=== PATIENT | female | born 1985 | race Caucasian/White ===

== ENCOUNTER → 2016-12-28 | Outpatient (CLI) | payer BC ==
[~2016-12-28] MED LIST: ACET-1311 PO; FERR1TAB23; OXYC-57 PO; PREN1TAB29
--- NOTE | 2016-12-28 14:50 | DIAGNOSTIC IMAGING REPORT ---
RIGHT FIFTH FINGER 3 VIEWS CLINICAL HISTORY: Right fifth finger pain status post trauma COMPARISON: None. DISCUSSION: There is a transverse hairline lucency through the base of distal phalanx. This may indicate a nondisplaced fracture. This is age-indeterminate. Please correlate with the patient's site of pain. IMPRESSION: 1. Subtle transverse hairline lucency through the base of the distal phalanx. This is age-indeterminate, and needs to be correlated with the patient's site of pain Electronically signed by: Kevin Slade M.D. 12/28/2016 2:48 PM Dictated Date/Time: 12/28/2016 2:47 PM
== END | disposition home or self-care (01) ==
LOC: C.RAD1850 14:22
PROVIDERS: ATTEND Family Medicine
DX: S69.91XA Unspecified injury of right wrist, hand and finger(s), initial encounter (principal); R93.7 Abnormal findings on diagnostic imaging of other parts of musculoskeletal system; X58.XXXA Exposure to other specified factors, initial encounter

== ENCOUNTER → 2017-03-13 | Outpatient (CLI) | payer BC ==
[2017-03-13 10:21] LABS: BASO % 0.4 %; BASO ABS # 0.02 K/uL (0-0.2); COMPLETE YES; EOS % 1.7 %; HEMATOCRIT 40.6 % (37-47); IG% 0.2 %; LYMPH % 30.3 %; LYMPH ABS # 1.45 K/uL (1.2-3.4); MEAN CELL VOLUME 91.9 fL (80-100); MEAN CORPUSCULAR HEMOGLOBIN 30.5 pg (25-34); MEAN CORPUSCULAR HGB CONC 33.3 g/dl (32-36); MEAN PLATELET VOLUME 10.4 fL (7.4-10.4); MONO % 7.7 %; NEUT % 59.7 %; PLATELET COUNT 193 K/uL (130-400); RED BLOOD COUNT 4.42 M/uL (4.2-5.4); WHITE BLOOD COUNT 4.78 K/uL (4.8-10.8)
[2017-03-13 11:04] LABS: ALT/SGPT 27 U/L (12-78); AST/SGOT 15 U/L (15-37); BLOOD UREA NITROGEN 16 mg/dl (7-18); BUN/CREATININE RATIO 23.7 (10-20); CALCIUM 8.6 mg/dl (8.5-10.1); CARBON DIOXIDE 30 mmol/L (21-32); CHLORIDE 106 mmol/L (98-107); CREATININE 0.66 mg/dl (0.60-1.20); GLUCOSE 67 mg/dl (70-99); POTASSIUM 4.3 mmol/L (3.5-5.1); SODIUM 140 mmol/L (136-145)
[2017-03-13 11:06] LABS: ALKALINE PHOSPHATASE 35 U/L (45-117)
[2017-03-16 02:20] LABS: AFP TUMOR MARKER SERUM 1.6 NG/ML (<6.1); HEP B QUANT 1773 IU/mL (<20); HEP B QUANT LOG IU/ML 3.25 Log IU/mL (<1.30); LIVER FIBR APOLIPOPROTEIN A-1 176 mg/dL (101-198); LIVER FIBROS ALPHA-2-MACROGLOB 299 mg/dL (106-279); LIVER FIBROSIS GGT 9 U/L (3-50); NECROINFLAMMATION ACT GRADE A0; NECROINFLAMMATION ACT SCORE 0.04
== END | disposition home or self-care (01) ==
LOC: C.LAB1850 09:31
PROVIDERS: ATTEND Internal Medicine Infectious Disease
DX: B18.1 Chronic viral hepatitis B without delta-agent (principal)

== ENCOUNTER → 2017-05-09 | Outpatient (CLI) | payer BC ==
[2017-05-09 14:36] LABS: URINE APPEARANCE CLEAR (CLEAR); URINE BILIRUBIN NEG (NEG); URINE COLOR YELLOW; URINE EPITHELIAL CELL AUTO >30 /lpf (0-5); URINE NITRITE NEG (NEG); URINE SPECIFIC GRAVITY 1.024 (1.000-1.030); UROBILINOGEN NEG (NEG)
[2017-05-09 14:42] LABS: MANUAL MICROSCOPIC REQUIRED? NO; REVIEW REQ? NO
== END | disposition home or self-care (01) ==
LOC: C.LABSPEC 13:10
PROVIDERS: ATTEND Obstetrics & Gynecology
DX: Z34.81 Encounter for supervision of other normal pregnancy, first trimester (principal)

== ENCOUNTER → 2017-05-16 | Outpatient (CLI) | payer BC ==
[2017-05-16 12:23] LABS: BASO % 0.3 %; BASO ABS # 0.02 K/uL (0-0.2); COMPLETE YES; HEMATOCRIT 35.2 % (37-47); IG% 0.3 %; LYMPH % 19.7 %; LYMPH ABS # 1.24 K/uL (1.2-3.4); MEAN CELL VOLUME 89.3 fL (80-100); MEAN CORPUSCULAR HGB CONC 34.7 g/dl (32-36); MEAN PLATELET VOLUME 10.4 fL (7.4-10.4); MONO % 6.1 %; NEUT % 72.6 %; PLATELET COUNT 191 K/uL (130-400); RED BLOOD COUNT 3.94 M/uL (4.2-5.4); WHITE BLOOD COUNT 6.28 K/uL (4.8-10.8)
[2017-05-18 04:28] LABS: HBSAG REACTIVE (NON-REACTIVE)
[2017-05-19 13:07] LABS: CHLAMYDIA TRACH RNA*** NOT DETECTED (NOT DETECTED); GC (NEIS GONORRHOEAE)RNA** NOT DETECTED (NOT DETECTED)
== END | disposition home or self-care (01) ==
LOC: C.LAB1850 09:55
PROVIDERS: ATTEND Obstetrics & Gynecology
DX: Z34.81 Encounter for supervision of other normal pregnancy, first trimester (principal)

== ENCOUNTER → 2017-05-16 | Outpatient (CLI) | payer BC | END | disposition home or self-care (01) | LOC: C.PAPS 11:43 | PROVIDERS: ATTEND Obstetrics & Gynecology | DX: Z01.419 Encounter for gynecological examination (general) (routine) without abnormal findings (principal); Z11.51 Encounter for screening for human papillomavirus (HPV) ==

== ENCOUNTER → 2017-06-21 | Outpatient (CLI) | payer BC ==
[2017-06-21 13:53] LABS: GTGD 50 Grams
== END | disposition home or self-care (01) ==
LOC: C.LAB1850 09:30
PROVIDERS: ATTEND Obstetrics & Gynecology
DX: Z34.82 Encounter for supervision of other normal pregnancy, second trimester (principal)

== ENCOUNTER → 2017-06-28 | Outpatient (CLI) | payer BC ==
[2017-06-28 13:17] LABS: BASO % 0.1 %; BASO ABS # 0.01 K/uL (0-0.2); COMPLETE YES; EOS % 0.7 %; IG% 0.4 %; LYMPH % 17.4 %; LYMPH ABS # 1.46 K/uL (1.2-3.4); MEAN CELL VOLUME 91.7 fL (80-100); MEAN CORPUSCULAR HEMOGLOBIN 31.7 pg (25-34); MEAN CORPUSCULAR HGB CONC 34.5 g/dl (32-36); MEAN PLATELET VOLUME 9.8 fL (7.4-10.4); MONO % 5.9 %; NEUT % 75.5 %; PLATELET COUNT 207 K/uL (130-400); WHITE BLOOD COUNT 8.41 K/uL (4.8-10.8)
[2017-06-28 13:54] LABS: ALT/SGPT 21 U/L (12-78); AST/SGOT 14 U/L (15-37); BLOOD UREA NITROGEN 8 mg/dl (7-18); BUN/CREATININE RATIO 15.1 (10-20); CALCIUM 8.7 mg/dl (8.5-10.1); CARBON DIOXIDE 28 mmol/L (21-32); CHLORIDE 104 mmol/L (98-107); GLUCOSE 74 mg/dl (70-99); SODIUM 136 mmol/L (136-145)
[2017-06-28 13:57] LABS: ALB/GLOB RATIO 0.8 (0.9-2); ALKALINE PHOSPHATASE 32 U/L (45-117)
[2017-07-04 03:12] LABS: HEP B QUANT 12155 IU/mL (<20); HEP B QUANT LOG IU/ML 4.08 Log IU/mL (<1.30); LIVER FIBR APOLIPOPROTEIN A-1 229 mg/dL (101-198); LIVER FIBROS ALPHA-2-MACROGLOB 374 mg/dL (106-279); LIVER FIBROSIS GGT 5 U/L (3-50); NECROINFLAMMATION ACT GRADE A0; NECROINFLAMMATION ACT SCORE 0.02
== END | disposition home or self-care (01) ==
LOC: C.LAB1850 12:08
PROVIDERS: ATTEND Internal Medicine Infectious Disease
DX: B18.1 Chronic viral hepatitis B without delta-agent (principal)

== ENCOUNTER → 2017-10-11 | Outpatient (CLI) | payer BC ==
[2017-10-11 12:05] LABS: BASO % 0.2 %; BASO ABS # 0.02 K/uL (0-0.2); COMPLETE YES; EOS % 1.2 %; HEMATOCRIT 32.7 % (37-47); IG% 0.7 %; LYMPH % 16.6 %; LYMPH ABS # 1.62 K/uL (1.2-3.4); MEAN CORPUSCULAR HEMOGLOBIN 30.7 pg (25-34); MEAN CORPUSCULAR HGB CONC 32.7 g/dl (32-36); MEAN PLATELET VOLUME 10.1 fL (7.4-10.4); MONO % 4.9 %; NEUT % 76.4 %; PLATELET COUNT 203 K/uL (130-400); RED BLOOD COUNT 3.48 M/uL (4.2-5.4); WHITE BLOOD COUNT 9.74 K/uL (4.8-10.8)
[2017-10-11 12:21] LABS: ALT/SGPT 20 U/L (12-78); BLOOD UREA NITROGEN 10 mg/dl (7-18); BUN/CREATININE RATIO 17.4 (10-20); CALCIUM 8.3 mg/dl (8.5-10.1); CARBON DIOXIDE 24 mmol/L (21-32); CHLORIDE 104 mmol/L (98-107); CREATININE 0.57 mg/dl (0.60-1.20); GLUCOSE 105 mg/dl (70-99); POTASSIUM 3.9 mmol/L (3.5-5.1); SODIUM 136 mmol/L (136-145)
[2017-10-11 12:24] LABS: ALB/GLOB RATIO 0.7 (0.9-2); ALKALINE PHOSPHATASE 64 U/L (45-117); AST/SGOT 18 U/L (15-37)
[2017-10-15 18:31] LABS: AFP TUMOR MARKER SERUM 201.3 NG/ML (<6.1); HEP B QUANT LOG IU/ML 3.09 Log IU/mL (<1.30)
== END | disposition home or self-care (01) ==
LOC: C.LAB1850 09:50
PROVIDERS: ATTEND Internal Medicine Infectious Disease
DX: B18.1 Chronic viral hepatitis B without delta-agent (principal)

== ENCOUNTER → 2017-10-29 | Outpatient (CLI) | payer BC | END | disposition home or self-care (01) | LOC: C.LABSPEC 12:46 | PROVIDERS: ATTEND Obstetrics & Gynecology | DX: Z34.83 Encounter for supervision of other normal pregnancy, third trimester (principal); Z3A.00 Weeks of gestation of pregnancy not specified ==

== ENCOUNTER 2017-11-18 07:30 | Inpatient (IN) | payer BC ==
--- NOTE | 2017-11-08 02:27 | HISTORY & PHYSICAL EXAMINATION ---
DATE OF ADMISSION: 11/18/2017 CHIEF COMPLAINT: Scheduled section. HISTORY OF PRESENT ILLNESS: The patient is a 32-year-old G2, P1-0-0-1 at 39 weeks 1 day, presenting for a scheduled section. Her is complicated by chronic hepatitis B and history of section x1. For her hepatitis B, she has been seeing Dr. Richardson who does not recommend treatment, but does recommend that the pediatrics be notified after delivery. PAST MEDICAL HISTORY: Hepatitis B carrier. PAST SURGICAL HISTORY: section. ALLERGIES: ASPIRIN WITH AN UNKNOWN REACTION HAPPENED A CHILD. MEDICATIONS: vitamins. SOCIAL HISTORY: Denies tobacco, alcohol and drug use. FAMILY HISTORY: Unremarkable. REVIEW OF SYSTEMS: All reviewed and negative except as described above. PHYSICAL EXAMINATION: VITAL SIGNS: Most recent vital signs: Blood pressure 120/80, weight 163.4. GENERAL: Awake, alert and oriented x3, no acute distress. HEART: Regular rate and rhythm S1, S2, no murmurs, gallops or rubs. LUNGS: Clear to auscultation bilaterally. ABDOMEN: Soft, nontender to palpation, gravid. EXTREMITIES: No calf tenderness, no edema. PELVIC: heart tones 140s. LABORATORY DATA: Blood type A positive, antibody negative, rubella immune, RPR nonreactive. Urine culture at the beginning of negative, hepatitis B positive, HIV negative. Initial early 1 hour Glucola 82. Anatomy ultrasound completed on 07/10/2017, 28-week labs normal. Group B strep negative. ASSESSMENT: 1. A 32-year-old G2, P1-0-0-1 at 37 weeks 5 days. 2. History of section with desire for repeat. 3. Chronic hepatitis B. PLAN: Plan is for repeat section.
[2017-11-18] VITALS (9 sets, daily range): BP systolic 101–118; BP diastolic 67–76; PULSE 71–73; TEMP 36.4–36.8; O2SAT 97–100; Ht 165.1 cm; Wt 74.1 kg
[~2017-11-18] VITALS: Ht 165.1 cm; Wt 74.1 kg
[~2017-11-18 07:30] MED LIST changes: +CEFAZOLIN 2000MG IV PUSH 10 ML IV SCH; +CEFAZOLIN IV 2,000 MG in SYRINGE 0 ML IV SCH; +LACTATED RINGER'S 1000ML 1,000 ML IV SCH
[2017-11-18] MEDS ORDERED: LACTATED RINGER'S 1000ML 1,000 ML IV ONE (08:56)
[2017-11-18] MEDS ORDERED: CITRIC ACID/SODIUM CITRATE 15 ML UDC PO ONE (09:00)
[2017-11-18 09:43] LABS: BASO % 0.3 %; BASO ABS # 0.02 K/uL (0-0.2); EOS % 1.6 %; EOS ABS # 0.13 K/uL (0-0.5); HEMATOCRIT 33.8 % (37-47); HEMOGLOBIN 11.3 g/dL (12.0-16.0); IG# 0.03 K/uL (0.00-0.02); LYMPH % 21.4 %; MEAN CELL VOLUME 91.8 fL (80-100); MEAN CORPUSCULAR HEMOGLOBIN 30.7 pg (25-34); MEAN CORPUSCULAR HGB CONC 33.4 g/dl (32-36); MEAN PLATELET VOLUME 10.5 fL (7.4-10.4); MONO % 9.2 %; MONO ABS # 0.73 K/uL (0.11-0.59); NEUT % 67.1 %; NEUT ABS # 5.33 K/uL (1.4-6.5); PLATELET COUNT 213 K/uL (130-400); RED CELL DISTRIBUTION WIDTH CV 13.6 % (11.5-14.5); WHITE BLOOD COUNT 7.94 K/uL (4.8-10.8)
[2017-11-18] MEDS ORDERED: FENTANYL CITRATE INJ 50 MCG/1 ML 2 ML VIAL ONE (10:49)
[2017-11-18] MEDS ORDERED: MoRPHine SULFATE PF 1 MG/ML 10 ML AMP/VIAL ONE (10:49)
[2017-11-18] MEDS ORDERED: OXYTOCIN INJ 10 UNITS/ML VIAL ONE (10:50)
--- NOTE | 2017-11-18 12:14 | History & Physical Bridge Note ---
H&P Re-Evaluation Bridge Note: I have examined the patient, reviewed the History & Physical and in the interval since the performance of the History & Physical I have noted the following changes of clinical significance: Update to H&P: correction to Assessment. Patient is 39w1d gestation (not 37w as incorrectly documented).
[2017-11-18] MEDS ORDERED: PHENYLEPHRINE 100MCG/ML 5ML SYR ONE (12:26)
[2017-11-18] MEDS ORDERED: METHYLERGONOVINE MALEATE 0.2 MG/ML AMP ONE (12:55)
[2017-11-18] MEDS ORDERED: ONDANSETRON INJ 2 MG/ML 2 ML VIAL ONE (13:04)
[2017-11-18] MEDS ORDERED: SODIUM CHLORIDE 0.9% 1000ML 1,000 ML IV PRN (13:06)
[2017-11-18] MEDS ORDERED: LACTATED RINGER'S 1000ML 500 ML IV PRN (13:06)
[2017-11-18] MEDS ORDERED: NALOXONE HCL INJ 1 MG in SODIUM CHLORIDE 0.9% 1000ML 1,000 ML IV PRN (13:06)
[2017-11-18] MEDS ORDERED: NALOXONE HCL INJ 0.08 MG in SYRINGE 1.8 ML IV PRN (13:06)
[2017-11-18] MEDS ORDERED: NALBUPHINE HCL INJ 10 MG/ML AMP IV PRN (13:15)
[2017-11-18] MEDS ORDERED: NO NARCOTICS OR SEDATIVES SCH (13:15)
[2017-11-18] MEDS ORDERED: MoRPHine SULFATE PF 1 MG/ML 10 ML AMP/VIAL EPI PRN (13:15)
[2017-11-18] MEDS ORDERED: ONDANSETRON INJ 2 MG/ML 2 ML VIAL IV PRN (13:15)
[2017-11-18] MEDS ORDERED: EpHEDrine SULFATE INJ 50 MG/ML AMP IV PRN (13:15)
[2017-11-18] MEDS ORDERED: DiphenhydrAMINE HCL 50 MG/ML VIAL IV PRN (13:15)
[2017-11-18] MEDS ORDERED: NALOXONE HCL 0.4 MG/1 ML VIAL/CARP IV PRN (13:15)
[2017-11-18] MEDS ORDERED: LACTATED RINGER'S 1000ML 1,000 ML IV SCH (13:16)
--- NOTE | 2017-11-18 13:21 | [facility] Post Operative Brief Note ---
Immediate Operative Summary Operative Date Nov 18, 2017. Pre-Operative Diagnosis Term at 39 1/7 Weeks. Previous Caesarean Section x 1; Desires Repeat Caesarean Section. Hepatitis B - chronic Post-Operative Diagnosis Same as Pre-op. Procedure(s) Performed Repeat low transverse section for a Live Male @ [address] Allred Smt Machine Operator Surgeon(s) Dr. Narayanan Estimated Blood Loss 700ml Findings Viable male , Apgars 8/9 Wt 8#0. Normal appearing uterus, tubes, ovaries. Specimens Placenta Cord Blood Drains stuart, clear yellow Anesthesia spinal Complication(s) None Disposition Recovery Room / PACU
[2017-11-18] MEDS ORDERED: DIPHTHERIA/TETANUS/PERTUSSIS 0.5 ML SYR/VIAL IM. ONE (13:30)
[2017-11-18] MEDS ORDERED: SUPERCREAM 0.870 % 15GM JAR EXT PRN (13:30)
[2017-11-18] MEDS ORDERED: PROMETHAZINE HCL INJ 25 MG in SODIUM CHLORIDE 0.9% 50ML 50 ML IV PRN (13:30)
[2017-11-18] MEDS ORDERED: LANOLIN OINT EXT PRN (13:30)
[2017-11-18] MEDS ORDERED: OXYTOCIN INJ 30 UNITS in LACTATED RINGER'S 1000ML 1,000 ML IV SCH (13:30)
[2017-11-18] MEDS ORDERED: BENZOCAINE 20% AER SPR 82.5 GM CAN EXT PRN (13:30)
[2017-11-18] MEDS ORDERED: HYDROCORTISONE ACETATE 25 MG SUPP PR PRN (13:30)
[2017-11-18] MEDS ORDERED: SODIUM CHLORIDE 0.65% NA SOLN 45 ML (OCEAN) ONE (13:41)
--- NOTE | 2017-11-18 14:10 | OPERATIVE REPORT ---
DATE OF OPERATION: 11/18/2017 PREOPERATIVE DIAGNOSES: 1. Term at 39 weeks 1 day. 2. Previous section x1. 3. Desires repeat . 4. Chronic hepatitis B. POSTOPERATIVE DIAGNOSES: Same. PROCEDURES PERFORMED: Repeat low transverse section. SURGEON: Sera Allred DO HOME TEACHING GRADES 9 THRU 12 TEACHER: Dr. Narayanan. ESTIMATED BLOOD LOSS: 700 mL. FINDINGS: Viable male , Apgars 8 and 9, weight 8 pounds 0 ounces. Normal appearing uterus, tubes, and ovaries. SPECIMENS: Placenta and cord blood. DRAINS: Pearce, clear yellow. ANESTHESIA: Spinal. COMPLICATIONS: None. DISPOSITION: Stable and good to recovery area. INDICATIONS FOR PROCEDURE: The patient is a 32-year-old G2, P1-0-0-1 at 39 weeks 1 day with a history of section x1 and desires repeat. DESCRIPTION OF PROCEDURE: The patient was seen in the preoperative holding area, where risks, benefits, and alternatives to surgery were reviewed. She elected to proceed with the case. She had previously signed informed consent under no duress in the office. She was taken to the operating room, where spinal anesthesia was administered. She was prepared and draped in the usual sterile fashion in the supine position with a leftward tilt. Timeout was confirmed. Two grams of Ancef were infused prior to incision. The Pfannenstiel skin incision was made with a scalpel and carried through to the underlying layer of the fascia. The prior incision was removed. The fascia was nicked at midline and this incision was extended bilaterally, sharply and bluntly. The superior aspect of the fascia was grasped with Cristel clamps x2, elevated off the underlying rectus abdominis muscles and dissected both bluntly and sharply. In a similar fashion, the inferior aspect of the fascial incision was dissected. The rectus abdominis muscles were at midline. The peritoneum was entered bluntly digitally and this incision was extended both bluntly and sharply. Bladder blade was placed. A bladder flap was created using Metzenbaum scissors. Bladder was dissected off the anterior aspect of the uterus. The bladder blade was replaced. A new scalpel was used to make a low transverse uterine incision. This incision was extended cephalad caudad manually. The was delivered from a cephalic presentation. The head delivered. Nuchal cord x2 was noted and easily reduced. The anterior shoulder and the posterior shoulder were delivered followed by the body. The cord was doubly clamped and cut. The baby was handed off to the waiting pediatrics team. A spontaneous cry was heard. A cord segment was retained for cord gases. Cord blood was obtained. The placenta was then removed via manual traction on the cord. The uterus was exteriorized. The uterus was swept for all clots and debris. The hysterotomy incision was reapproximated using 0 Vicryl in a running locked stitch. A second layer of the same suture was used to imbricate the incision. The posterior uterus was inspected and found to be normal. Loetry-ef-whbit sutures of 0 Vicryl were used at the hysterotomy incision to obtain excellent hemostasis. While the fundus of the uterus was firm, the lower uterine segment was somewhat boggy and there was still some oozing and bleeding. Therefore, 1 dose of Methergine IM was given directly into the uterine muscle. Excellent hemostasis was achieved. The uterus was placed back inside the abdomen. Gutters were cleared of all clots and debris. The fascial incision was reapproximated using 0 Vicryl in a running stitch. The subcutaneous tissue was reapproximated using 2-0 plain gut in a running stitch. The skin was reapproximated using 4-0 Vicryl in a running subcuticular stitch. Steri-Strips and a bandage were applied. The patient tolerated the procedure well, in stable and good condition. The sponge, instrument and needle counts were correct at the conclusion of the case. I attest to the content of the Intraoperative Record and any orders documented therein. Any exception s are noted below.
--- NOTE | 2017-11-18 14:13 | Anesthesiology Progress Note ---
Anesthesia Post Op Note Date & Time Nov 18, 2017 at 14:13 Notes Mental Status: alert / awake / arousable, participated in evaluation Pt Amnestic to Procedure: Yes Nausea / Vomiting: adequately controlled Pain: adequately controlled Airway Patency, RR, SpO2: stable & adequate BP & HR: stable & adequate Hydration State: stable & adequate Neuraxial Anesthesia: was administered, sensory block is resolving Anesthetic Complications: no major complications apparent
[2017-11-18] MEDS: MoRPHine SULFATE 2 MG/ML CARP IV PRN ×2 (16:07→22:53)
[2017-11-18] MEDS: SIMETHICONE 80 MG CHEW PO SCH ×2 (17:23→20:02)
[2017-11-18] MEDS: MEPERIDINE HCL 25 MG/ML CARP IV PRN ×2 (17:24→19:16)
--- NOTE | 2017-11-18 17:34 | Medical Student: [facility] ---
Operative Report Operative Date Nov 18, 2017. Pre-Operative Diagnosis Term pregancy (39-11/10), hx of 1 previous , Hepatitis B+ (chronic) Post-Operative Diagnosis Term pregancy (39-11/10), hx of 1 previous , Hepatitis B+ (chronic) Procedure(s) Performed Repeat section for viable male infant at [address] Sera Allred Warp Hauler Surgeon(s) Dr. Alison Narayanan Estimated Blood Loss 700ml Findings Viable male with Apgars of 8 and 9 at 1 and 5 minutes of life ( respectively). weighed 8 lbs 0 oz. Uterus, ovaries, and fallopian tubes appeared normal. Specimens placenta, cord blood, cord gases Drains stuart (clear yellow urine) Anesthesia spinal Complication(s) None Disposition Recovery Room / PACU
[2017-11-18] MEDS: DOCUSATE SODIUM 100 MG CAP PO SCH (20:01)
[2017-11-19] VITALS (11 sets, daily range): BP systolic 100–109; BP diastolic 61–69; PULSE 69–78; TEMP 36.4–36.7; O2SAT 98–100
[2017-11-19] MEDS ORDERED: NURSING VERBAL MED ORDER ONE (02:45)
[2017-11-19] MEDS ORDERED: ACETAMINOPHEN 1000 MG/100 ML IV IV ONE (03:15)
[2017-11-19] MEDS ORDERED: MoRPHine SULFATE 4 MG/ML 1 ML CARP\\VIAL IV STA (03:31)
[2017-11-19] MEDS ORDERED: CEFAZOLIN IV 2 MG in DEXTROSE 5% 50ML 50 ML IV SCH (06:00)
--- NOTE | 2017-11-19 06:10 | Discharge Instructions ---
Discharge Instructions Date of Service Nov 19, 2017. Admission Reason for Admission: With History Of Section, Antepa Discharge Discharge Diagnosis / Problem: recovery from csection Discharge Goals Goal(s): Routine recovery after Medications Continue Dispensed Medications: supercream, dermaplast, tucks, lansinoh Activity Recommendations Activity Limitations: per Instructions/Follow-up section . Instructions / Follow-Up Instructions / Follow-Up ACTIVITY RECOMMENDATIONS: * Gradual return to full activity over the next 2-3 weeks. * No lifting - nothing heavier than baby over the next 2-3 weeks. * Do not engage in vigorous exercise, sexual activity or sports until cleared by your physician. * Do not drive or operate any motorized equipment until cleared by your physician. * You may shower/bathe daily. MEDICATIONS: For discomfort or pain, you may use Acetaminophen (Tylenol), Ibuprofen (Advil), or Naproxen (Aleve) following the package directions. For constipation you may use Colace following the package directions. BREAST CARE: If you are not breast feeding: * Wear a supportive bra 24 hours a day for one to two weeks. * Avoid stimulating your breasts and nipples as much as possible during the first few weeks after delivery. * When taking a shower, have the warm water hit your back, not breasts. * When your breasts feel full, apply ice packs. Usually three to four times a day helps ease the discomfort. * Take a mild pain medication (Tylenol / Motrin) when you are uncomfortable. If breast feeding: * Use breast milk to lubricate nipples. Lansinoh cream may be used for sore nipples. You do not need to remove cream prior to breast feeding. If using a different brand of cream, check the label for directions regarding removal of cream prior to nursing. * Wear a supportive bra. * If having problems with breasts or breast feeding, call a data management consultant or your health care provider. SPECIAL CARE INSTRUCTIONS: When you are discharged from the hospital, it is important for you to follow the instructions listed below: * During the first week at home, you should be able to care for yourself and your baby. In addition, the usual light household activities are encouraged. * Limit your activities to the way you feel. Do not try to clean the house or move furniture. Be sensible. * If you actively engage in sports and have done so up until the time of your delivery, you may resume these activities as soon as you feel able. This may take up to one month or even longer. Use good judgment. * Continue to take your vitamins for at least six weeks after the of your baby. * Your diet need not be limited unless you were on a special diet before your delivery. Breast-feeding mothers need around 2500 calories per day and at least 64-80 ounces of fluid per day (8 to 10 glasses). * You should eat foods from the four major food groups. Crash diets or fad diets are to be avoided. Eating lean meats, fresh fruits and vegetables, low-fat dairy products, high fiber foods and a regular exercise program, will help you get back to your pre- weight without putting your health at risk. * Constipation is sometimes a problem after delivery. Take a mild laxative as needed. If breast feeding, Milk of Magnesia is acceptable to use. You may use a suppository or Fleets enema. * A daily shower or tub bath is suggested. Wash incision daily with warm soapy water and pat dry. It doesn't need to be covered unless drainage is present. * A bloody vaginal discharge will usually continue until around four weeks . A small amount of bleeding may continue for as long as six weeks. Vaginal discharge changes from the bright red bleeding after delivery to pink then brownish and finally yellowish-pink before becoming white and disappearing. * Bleeding may increase with activity. Your first period may come in 4-8 weeks. If you are breast feeding, your period may be delayed even longer. * [place] (sex) can begin whenever both you and your partner feel comfortable and do not have any form of genital infection. It is recommended that you wait at least six weeks for internal and external healing to occur. If you have questions, please talk to your health care practitioner. A condom should be used to prevent infection and . * Foreplay, gentle intercourse and lubrication is very important the first several times to prevent pain. A water-based lubricant such as K-Y jelly or Astroglide may be used. * If you have RH negative blood and your baby is RH positive, you will receive RHOGAM by injection prior to discharge. The nurse will give you a card to keep with you that has the date and place that you received RHOGAM after delivery. * During your care, you had a Rubella screen done to check for the presence of rubella antibodies in your blood. If your test was negative, you will receive a Rubella vaccine prior to discharge. This vaccine may cause a fever, soreness at the injection site and flu-like symptoms. If these symptoms persist, notify your health care practitioner. is not advised for one month after a Rubella vaccine. * Verbalizes understanding of car seat law as reviewed with patient nursing. * Car Seat hand-out given and reviewed with patient by nursing. * Shaken baby information reviewed with patient by nursing. Call you doctor if: * Heavy bleeding (saturating several pads an hour) or passing clots the size of your fist. * A fever >101 degrees F (38.3 degrees C) on two occasions four hours apart and /or chills. * Unusual pain in the pelvic or vaginal areas. * Call the doctor for any increased redness, drainage or swelling around the incision and any pain unrelieved by prescribed pain medication. * "Baby Blues" lasting longer than two weeks. If you have any questions or concerns, call your health care practitioner at . FOLLOW UP VISIT: * Please call the office at to schedule a 6 week examination. It is important you keep this appointment. It is important for you to make arrangements for either yearly or twice yearly check-ups thereafter. Current Hospital Diet Patient's current hospital diet: Regular Diet Discharge Diet Recommended Diet: Regular OB Diet Procedures Procedures Performed: Repeat low transverse section for a Live Male @ 1242 Pending Studies Studies pending at discharge: no Medical Emergencies . Who to Call and When: Medical Emergencies: If at any time you feel your situation is an emergency, please call [phone] immediately. . Non-Emergent Contact Non-Emergency issues call your: Composition Molder . . "Provider Documentation" section prepared by Joon Sharma. . VTE Core Measure Inpt VTE Proph given/why not?: SCD's
[2017-11-19 06:21] LABS: BASO % 0.1 %; BASO ABS # 0.01 K/uL (0-0.2); EOS % 0.6 %; EOS ABS # 0.08 K/uL (0-0.5); HEMATOCRIT 32.3 % (37-47); HEMOGLOBIN 10.8 g/dL (12.0-16.0); IG# 0.04 K/uL (0.00-0.02); LYMPH % 10.2 %; LYMPH ABS # 1.36 K/uL (1.2-3.4); MEAN CELL VOLUME 91.5 fL (80-100); MEAN CORPUSCULAR HEMOGLOBIN 30.6 pg (25-34); MEAN CORPUSCULAR HGB CONC 33.4 g/dl (32-36); MEAN PLATELET VOLUME 9.8 fL (7.4-10.4); MONO % 6.4 %; MONO ABS # 0.85 K/uL (0.11-0.59); NEUT % 82.4 %; NEUT ABS # 10.93 K/uL (1.4-6.5); PLATELET COUNT 157 K/uL (130-400); RED CELL DISTRIBUTION WIDTH CV 13.8 % (11.5-14.5); WHITE BLOOD COUNT 13.27 K/uL (4.8-10.8)
[2017-11-19] MEDS ORDERED: MEPERIDINE HCL 50 MG/ML CARP IV PRN ×2 (06:30)
[2017-11-19] MEDS ORDERED: ONDANSETRON INJ 2 MG/ML 2 ML VIAL IV PRN (06:30)
[2017-11-19] MEDS ORDERED: DC INTRASPINAL MORPHINE ONE (06:30)
[2017-11-19] MEDS ORDERED: KETOROLAC TROMETHAMINE 30 MG/ML VIAL IV. PRN (06:30)
[2017-11-19] MEDS: MoRPHine SULFATE 2 MG/ML CARP IV PRN (06:30)
--- NOTE | 2017-11-19 06:41 | Medical Student: [facility] ---
Med Student CYBER SECURITY ANALYST Progress Nt Date of Service Nov 19, 2017. Subjective conversation w/ patient, physical exam, chart review, lab review Ambulation: limited ambulation (able to stand, has not ambulated secondary to pain and having stuart in until this morning) Voiding: voiding difficulty (stuart removed this morning, has not voided on own yet) Passing Gas: No Diet Tolerance: Clear Liquids (will advance to normal diet at breakfast), Regular Diet (resumed for breakfast this morning) Lochia: Moderate Feeding Type: Breast Feeding Pain: 8/10 right side of incision, controlled with morphine Review of Systems Constitutional: No fever, No chills Respiratory: No cough, No shortness of breath Cardiac: No chest pain, No palpitations Abdomen: + pain, No nausea, No vomiting, No diarrhea Female : No dysuria Objective Vital Signs Date Time Temp Pulse Resp B/P (MAP) Pulse Ox O2 Delivery O2 Flow Rate FiO2 11/19/17 05:00 18 98 11/19/17 04:00 18 99 11/19/17 03:00 20 98 11/19/17 03:00 36.6 77 18 100/62 (75) 98 Room Air 11/19/17 03:00 98 Room Air 11/19/17 02:00 16 100 11/19/17 01:00 20 100 11/19/17 00:00 16 100 11/18/17 22:50 20 97 11/18/17 22:50 36.8 71 18 101/67 (78) 97 Room Air 11/18/17 22:00 16 100 11/18/17 21:00 18 99 11/18/17 20:00 18 100 11/18/17 19:15 16 100 11/18/17 19:15 36.8 73 18 112/71 (85) 100 Room Air 11/18/17 19:15 100 Room Air 11/18/17 18:40 16 97 11/18/17 17:40 16 100 11/18/17 17:40 36.5 72 16 109/72 (84) 100 Room Air 11/18/17 16:40 16 100 11/18/17 15:40 36.4 71 16 118/76 (90) 100 Room Air 11/18/17 15:40 16 100 11/18/17 15:40 100 Room Air Physical Exam General Appearance: WELL-APPEARING, WD/WN, NO APPARENT DISTRESS Respiratory/Chest: lungs clear, normal breath sounds Cardiovascular: regular rate, rhythm, no murmur Abdomen: soft, + tenderness Fundus: Firm, Relation to Umbilicus (at umbilicus) Incision Description: Clean, Dry & Intact (steri strips in place) Extremities: normal inspection, no pedal edema, no calf tenderness Laboratory Results Last 24 Hours Test 11/18/17 09:12 11/19/17 06:05 White Blood Count 7.94 K/uL 13.27 K/uL Red Blood Count 3.68 M/uL 3.53 M/uL Hemoglobin 11.3 g/dL 10.8 g/dL Hematocrit 33.8 % 32.3 % Mean Corpuscular Volume 91.8 fL 91.5 fL Mean Corpuscular Hemoglobin 30.7 pg 30.6 pg Mean Corpuscular Hemoglobin Concent 33.4 g/dl 33.4 g/dl Platelet Count 213 K/uL 157 K/uL Mean Platelet Volume 10.5 fL 9.8 fL Neutrophils (%) (Auto) 67.1 % 82.4 % Lymphocytes (%) (Auto) 21.4 % 10.2 % Monocytes (%) (Auto) 9.2 % 6.4 % Eosinophils (%) (Auto) 1.6 % 0.6 % Basophils (%) (Auto) 0.3 % 0.1 % Neutrophils # (Auto) 5.33 K/uL 10.93 K/uL Lymphocytes # (Auto) 1.70 K/uL 1.36 K/uL Monocytes # (Auto) 0.73 K/uL 0.85 K/uL Eosinophils # (Auto) 0.13 K/uL 0.08 K/uL Basophils # (Auto) 0.02 K/uL 0.01 K/uL RDW Standard Deviation 45.0 fL 45.0 fL RDW Coefficient of Variation 13.6 % 13.8 % Immature Granulocyte % (Auto) 0.4 % 0.3 % Immature Granulocyte # (Auto) 0.03 K/uL 0.04 K/uL Medications IV morphine (2 gram Q6H) for pain, lactated ringers 125 mls/hr Assessment and Plan Post-Op Day Number: 1 Continue Routine Care: 32 yo female, now 2, PMHx of (now 2 in total) and HepB+ (chronic) , is post op day 1. She is GBS-/A+/RI. Patient is having significant 8 /10 pain at incision site (R>L), with some relief from IV morphine. She has not been able to ambulate since delivery, since stuart was just removed this morning. She has been tolerating clear liquid diet and will advance to normal diet this morning for breakfast. Moderate lochia reported. Stable vitals signs, and within normal limits. Patient's hgb was 11.3 on admission, today is pending. Plan: 1. Continue recovery from . Encourage ambulation, advancing diet, and breast feeding support. 2. Continue pain control. Continue IV morphine PRN until patient is able to tolerate regular diet, then switch to PO PRN.
--- NOTE | 2017-11-19 06:48 | OB/GYN Progress Note ---
SCHOOL PLANT CONSULTANT Progress Note Date of Service Nov 19, 2017. Subjective conversation w/ patient, physical exam, chart review, lab review Ambulation: limited ambulation Voiding: stuart catheter in place (just removed ) Passing Gas: No Diet Tolerance: Clear Liquids Lochia: Small Feeding Type: Breast Feeding Pain: 8/10 pain at the site of the incision, controlled with morphine Review of Systems Constitutional: No fever, No chills Respiratory: No cough, No shortness of breath Cardiac: No chest pain Abdomen: + pain, No nausea, No vomiting Female : No dysuria Objective Vital Signs Date Time Temp Pulse Resp B/P (MAP) Pulse Ox O2 Delivery O2 Flow Rate FiO2 11/19/17 06:00 18 99 11/19/17 05:00 18 98 11/19/17 04:00 18 99 11/19/17 03:00 20 98 11/19/17 03:00 36.6 77 18 100/62 (75) 98 Room Air 11/19/17 03:00 98 Room Air 11/19/17 02:00 16 100 11/19/17 01:00 20 100 11/19/17 00:00 16 100 11/18/17 22:50 20 97 11/18/17 22:50 36.8 71 18 101/67 (78) 97 Room Air 11/18/17 22:00 16 100 11/18/17 21:00 18 99 11/18/17 20:00 18 100 11/18/17 19:15 16 100 11/18/17 19:15 36.8 73 18 112/71 (85) 100 Room Air 11/18/17 19:15 100 Room Air 11/18/17 18:40 16 97 11/18/17 17:40 16 100 11/18/17 17:40 36.5 72 16 109/72 (84) 100 Room Air 11/18/17 16:40 16 100 11/18/17 15:40 36.4 71 16 118/76 (90) 100 Room Air 11/18/17 15:40 16 100 11/18/17 15:40 100 Room Air Physical Exam General Appearance: WELL-APPEARING, WD/WN, uncomfortable, in pain Respiratory/Chest: lungs clear, normal breath sounds Cardiovascular: regular rate, rhythm, no murmur Abdomen: + tenderness (generalized ) Fundus: Firm, Relation to Umbilicus (at the level of the umbilicus) Extremities: normal inspection, no pedal edema, no calf tenderness Laboratory Results Last 24 Hours Test 11/18/17 09:12 11/19/17 06:05 White Blood Count 7.94 K/uL 13.27 K/uL Red Blood Count 3.68 M/uL 3.53 M/uL Hemoglobin 11.3 g/dL 10.8 g/dL Hematocrit 33.8 % 32.3 % Mean Corpuscular Volume 91.8 fL 91.5 fL Mean Corpuscular Hemoglobin 30.7 pg 30.6 pg Mean Corpuscular Hemoglobin Concent 33.4 g/dl 33.4 g/dl Platelet Count 213 K/uL 157 K/uL Mean Platelet Volume 10.5 fL 9.8 fL Neutrophils (%) (Auto) 67.1 % 82.4 % Lymphocytes (%) (Auto) 21.4 % 10.2 % Monocytes (%) (Auto) 9.2 % 6.4 % Eosinophils (%) (Auto) 1.6 % 0.6 % Basophils (%) (Auto) 0.3 % 0.1 % Neutrophils # (Auto) 5.33 K/uL 10.93 K/uL Lymphocytes # (Auto) 1.70 K/uL 1.36 K/uL Monocytes # (Auto) 0.73 K/uL 0.85 K/uL Eosinophils # (Auto) 0.13 K/uL 0.08 K/uL Basophils # (Auto) 0.02 K/uL 0.01 K/uL RDW Standard Deviation 45.0 fL 45.0 fL RDW Coefficient of Variation 13.6 % 13.8 % Immature Granulocyte % (Auto) 0.4 % 0.3 % Immature Granulocyte # (Auto) 0.03 K/uL 0.04 K/uL Assessment and Plan Post-Op Day Number: 1 Continue Routine Care: 35 yo female csection at 39.1 wks post op day 1 Pt is GBS-/O+/A+. Pt expresses 8/10 at the site of the incision. She also expresses generalized abdominal tenderness. Reviewed vitals, stable and WNL. Hgb 11.3 at admission, 10.8 today. Plan; 1. Recovery from csection delivery; Continue pp care; ambulation, support BF, control pain, monitor lochia 2. Removed stuart this am. Monitor I/O and encourage and assist ambulation. Resident Physician Supervision Note: I was present with Dr. Sharma during the history and exam. I discussed the case with the resident and agree with the findings and plan as documented in the note. Any exceptions or clarifications are listed here: POD#1 s/p repeat c- section. Doing well. Ambulate, drink PO fluids, increase diet. Documented By: Sera Allred
[2017-11-19] MEDS: DOCUSATE SODIUM 100 MG CAP PO SCH ×2 (08:24→19:35)
[2017-11-19] MEDS: OXYCODONE/ACETAMINOPHEN 5-325 TAB PO PRN ×4 (08:25→22:26)
[2017-11-19] MEDS: SIMETHICONE 80 MG CHEW PO SCH ×4 (08:25→19:35)
[2017-11-19] MEDS: PRENATAL VITAMIN TAB PO SCH (08:25)
[2017-11-19] MEDS: IBUPROFEN 600 MG TAB PO PRN (19:35)
[2017-11-20] MEDS: IBUPROFEN 600 MG TAB PO PRN ×4 (00:40→22:08)
[2017-11-20] MEDS: OXYCODONE/ACETAMINOPHEN 5-325 TAB PO PRN ×4 (02:35→21:13)
--- NOTE | 2017-11-20 06:30 | Medical Student: [facility] ---
Med Student [employer]I [employer] Progress Nt Date of Service Nov 20, 2017. Subjective conversation w/ patient, physical exam, chart review Ambulation: ambulating normally Voiding: no voiding problems Passing Gas: Yes Diet Tolerance: Regular Diet Lochia: Small Feeding Type: Breast Feeding Pain: well controlled on percocet Review of Systems Constitutional: No fever, No chills Respiratory: No cough, No shortness of breath Cardiac: No chest pain, No edema Abdomen: No pain, No nausea, No vomiting, No diarrhea Female : No dysuria Objective Vital Signs Date Time Temp Pulse Resp B/P (MAP) Pulse Ox O2 Delivery O2 Flow Rate FiO2 11/19/17 23:35 98 Room Air 11/19/17 23:35 36.5 78 16 106/69 (81) 98 Room Air 11/19/17 16:15 100 Room Air 11/19/17 16:15 36.4 72 16 109/68 (82) 100 Room Air 11/19/17 12:30 36.7 69 16 100/64 (76) Room Air 11/19/17 07:30 36.7 76 16 101/61 (74) Room Air 11/19/17 07:30 Room Air Physical Exam General Appearance: WELL-APPEARING, WD/WN, NO APPARENT DISTRESS Respiratory/Chest: lungs clear, normal breath sounds Cardiovascular: regular rate, rhythm, no edema, no murmur Abdomen: soft Fundus: Firm, Relation to Umbilicus (1 fingerbreath below umbilicus) Incision Description: Clean, Dry & Intact (no steri strips) Extremities: non-tender, no pedal edema, no calf tenderness Assessment and Plan Post-Op Day Number: 2 Continue Routine Care: 32 yo female, now 2, PMHx of (now 2 in total) and HepB+ (chronic) , is post op day 2. She is GBS-/A+/RI. Patient's pain has significantly improved since yesterday on Percocet, with only complaining of pain to palpation of abdomen today. Yesterday she also improved on ambulation and voiding. She is now tolerating normal diet. She reports breast feeding is going well and her lochia is now minimal. Stable vitals signs, and within normal limits. Patient's hgb was 11.3 on admission, 10.8 (1/16). Plan: 1. Continue recovery from . Encourage ambulation, passing gas, and breast feeding support. 2. Continue pain control with Percocet.
--- NOTE | 2017-11-20 06:34 | Progress Note ---
Subjective Nov 20, 2017. Subjective conversation w/ patient, physical exam, lab review Ambulation: ambulating normally Voiding: no voiding problems Passing Gas: Yes Diet Tolerance: Regular Diet Lochia: Small Feeding Type: Breast Feeding Pain: Doing much better with pain management. Taking po meds. Comment: Has not been ambulating alot. Objective Vital Signs Date Time Temp Pulse Resp B/P (MAP) Pulse Ox O2 Delivery O2 Flow Rate FiO2 11/19/17 23:35 98 Room Air 11/19/17 23:35 36.5 78 16 106/69 (81) 98 Room Air 11/19/17 16:15 100 Room Air 11/19/17 16:15 36.4 72 16 109/68 (82) 100 Room Air 11/19/17 12:30 36.7 69 16 100/64 (76) Room Air 11/19/17 07:30 36.7 76 16 101/61 (74) Room Air 11/19/17 07:30 Room Air Physical Exam General Appearance: WELL-APPEARING Abdomen: non tender, soft Fundus: Firm, Non-Tender, Relation to Umbilicus (at u) Incision Description: Clean, Dry & Intact Extremities: non-tender, normal inspection Assessment and Plan Post-Op Day#: 2 Continue Routine Care: Overall doing better. Plan to continue to monitor today. She was offered d/c later today, but may consider staying until tomorrow. Continue to encourage ambulation.
[2017-11-20 07:50] VITALS: BP 103/64; PULSE 71; TEMP 36.7; O2SAT 97
[2017-11-20] MEDS: DOCUSATE SODIUM 100 MG CAP PO SCH ×2 (09:03→21:12)
[2017-11-20] MEDS: PRENATAL VITAMIN TAB PO SCH (09:03)
[2017-11-20] MEDS: SIMETHICONE 80 MG CHEW PO SCH ×4 (09:04→21:13)
[2017-11-20 16:00] VITALS: BP 112/72; PULSE 76; TEMP 36.7; O2SAT 97; O2SAT 99
[2017-11-20 23:55] VITALS: BP 107/61; PULSE 82; TEMP 36.8; O2SAT 95
--- NOTE | 2017-11-21 06:04 | Medical Student: [facility] ---
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 Subjective conversation w/ patient, physical exam Ambulation: ambulating normally Voiding: no voiding problems Passing Gas: Yes Diet Tolerance: Regular Diet Lochia: Small Feeding Type: Breast Feeding Pain: 4/10, 3/10 on percocet Notes: She wishes to go home today. Review of Systems Constitutional: No fever, No chills Respiratory: No cough, No shortness of breath Cardiac: No chest pain, No edema, No palpitations Abdomen: No nausea, No vomiting, No diarrhea Female : No dysuria Objective Vital Signs Date Time Temp Pulse Resp B/P (MAP) Pulse Ox O2 Delivery O2 Flow Rate FiO2 11/20/17 23:55 Room Air 11/20/17 23:55 36.8 82 16 107/61 (76) 95 Room Air 11/20/17 19:30 Room Air 11/20/17 16:00 97 Room Air 11/20/17 16:00 36.7 76 18 112/72 (85) 99 Room Air 11/20/17 07:50 36.7 71 16 103/64 (77) 97 Room Air Physical Exam General Appearance: WELL-APPEARING, WD/WN, NO APPARENT DISTRESS Respiratory/Chest: lungs clear, normal breath sounds Cardiovascular: regular rate, rhythm, no edema, no murmur Abdomen: soft Fundus: Firm, Relation to Umbilicus (1 fingerbreath below umbilicus) Incision Description: Clean, Dry & Intact Assessment and Plan Post-Op Day Number: 3 Continue Routine Care: 32 yo female, now 2, PMHx of (now 2 in total) and HepB+ (chronic) , is post op day 3. She is GBS-/A+/RI. Patient's pain has significantly improved since Saturday. Ambulation, breast feeding, and voiding going well. Tolerating normal diet. Lochia is minimal. Plan for discharge home today. Stable vitals signs, and within normal limits. Patient's hgb was 11.3 on admission, 10.8 (11/19). Plan: 1. Continue recovery from and discharge home. Encourage ambulation, passing gas, and breast feeding support. 2. Continue pain control with Percocet.
[2017-11-21] MEDS: OXYCODONE/ACETAMINOPHEN 5-325 TAB PO PRN ×2 (06:28→12:59)
--- NOTE | 2017-11-21 07:47 | OB/GYN Progress Note ---
SKILLED LABOR Progress Note Date of Service Nov 21, 2017. Subjective conversation w/ patient, physical exam, chart review, lab review Ambulation: ambulating normally Voiding: no voiding problems Passing Gas: Yes Diet Tolerance: Regular Diet Lochia: Small Feeding Type: Breast Feeding Pain: moderate 3/10, controlled by motrin Review of Systems Constitutional: No fever, No chills Respiratory: No cough, No shortness of breath Cardiac: No chest pain, No palpitations Abdomen: No pain, No nausea, No vomiting Female : No dysuria Objective Vital Signs Date Time Temp Pulse Resp B/P (MAP) Pulse Ox O2 Delivery O2 Flow Rate FiO2 11/20/17 23:55 Room Air 11/20/17 23:55 36.8 82 16 107/61 (76) 95 Room Air 11/20/17 19:30 Room Air 11/20/17 16:00 97 Room Air 11/20/17 16:00 36.7 76 18 112/72 (85) 99 Room Air 11/20/17 07:50 36.7 71 16 103/64 (77) 97 Room Air Physical Exam General Appearance: WELL-APPEARING, WD/WN, NO APPARENT DISTRESS Respiratory/Chest: lungs clear, normal breath sounds Cardiovascular: regular rate, rhythm, no murmur Abdomen: non tender, soft Fundus: Firm Extremities: no pedal edema, no calf tenderness Assessment and Plan Post-Op Day Number: 3 Continue Routine Care: 35 yo female csection at 39.1 wks post op day 3 Pt is GBS-/O+/A+. Reviewed vitals, stable and WNL. Plan; 1. Recovery from csection delivery; Continue pp care; ambulation, support BF, control pain, monitor lochia 2. DC today, discussed DC instructions Resident Physician Supervision Note: I was present with Dr. Sharma during the history and exam. I discussed the case with the resident and agree with the findings and plan as documented in the note. Any exceptions or clarifications are listed here: [None] Documented By: Alison Narayanan
[2017-11-21 09:25] VITALS: BP 110/73; PULSE 83; TEMP 36.7
[2017-11-21] MEDS: IBUPROFEN 600 MG TAB PO PRN ×2 (09:30→16:14)
[2017-11-21] MEDS: DOCUSATE SODIUM 100 MG CAP PO SCH (09:31)
[2017-11-21] MEDS: PRENATAL VITAMIN TAB PO SCH (09:33)
[2017-11-21] MEDS: SIMETHICONE 80 MG CHEW PO SCH ×2 (09:33→12:59)
[2017-11-21] MEDS ORDERED: MTR600X PO (14:13)
[2017-11-21] MEDS ORDERED: OXYC-57 PO (14:13)
[2017-11-21 16:15] VITALS: BP_DIAS 73; PULSE 83; TEMP 36.7
--- NOTE | 2017-11-25 16:35 | Discharge Summary ---
Discharge Summary Date of Service Nov 25, 2017. Discharge Summary Admission Date: Nov 18, 2017 at 08:49 Discharge Date: Nov 21, 2017 Discharge Disposition: Home Principal Diagnosis: Repeat section Procedures: Repeat low transverse section Medication Reconciliation New Medications: Ibuprofen (Ibuprofen) 600 Mg Tab 600 MG PO Q4H PRN for Pain, CEJA, Cramping, or Fever, #60 TAB 1 Refill Oxycodone/Acetaminophen 5MG/325MG (Percocet 5MG/325MG) Tab 1 TAB PO Q4H PRN for Pain - Pain Scale 1-5, #30 TAB 0 Refills PAIN Continued Medications: Acetaminophen (Tylenol) 325 Mg Tab 650 MG PO, TAB Ferrous Sulfate (Iron) 325 Mg Tab Vit W/ Ferrous Fumara () 1 Tab Tab Discontinued Medications: Oxycodone/Acetaminophen 5MG/325MG (Percocet 5MG/325MG) 1 Tab Tab 1 TAB PO Q4H PRN for Pain - Pain Scale 1-5, #20 TAB Discharge Exam Please see progress note from day of discharge. Hospital Course Total Time Spent: Less than 30 minutes This includes examination of the patient, discharge planning, medication reconciliation, and communication with other providers. Discharge Instructions Please refer to the electronic Patient Visit Report (Discharge Instructions) for additional information. Follow-Up 6 weeks OBGYN office
== END 2017-11-21 16:38 | disposition home or self-care (01) | DRG 765 ==
LOC: EDSTATUS 07:30 → C.LD 08:49 → C.OBG 16:42
PROVIDERS: ADMIT Obstetrics & Gynecology; ATTEND Obstetrics & Gynecology
PROC: 10D00Z1 Extraction of Products of Conception, Low, Open Approach (ICD-10-PCS; principal; 2017-11-18 10:30)
DX: O34.211 Maternal care for low transverse scar from previous cesarean delivery (principal); O98.42 Viral hepatitis complicating childbirth; B18.1 Chronic viral hepatitis B without delta-agent; O69.81X0 Labor and delivery complicated by cord around neck, without compression, not applicable or unspecified; Z3A.39 39 weeks gestation of pregnancy; Z37.0 Single live birth